=== PATIENT | female | born 1980 | race American Indian/Alaskan Native ===

== ENCOUNTER 2018-09-11 14:30 | Outpatient (CLI) | payer OTHER | END 2018-09-11 22:37 | disposition home or self-care (01) | LOC: NST 14:30 | DX: Z34.83 Encounter for supervision of other normal pregnancy, third trimester (principal) ==

== ENCOUNTER 2018-10-19 10:16 | Outpatient (CLI) | payer OTHER | END 2018-10-19 11:29 | disposition home or self-care (01) | LOC: NST 10:16 | DX: Z34.83 Encounter for supervision of other normal pregnancy, third trimester (principal) ==

== ENCOUNTER 2018-10-20 07:53 | Outpatient (CLI) | payer OTHER | END 2018-10-20 09:41 | disposition home or self-care (01) | LOC: NST 07:53 | DX: Z34.83 Encounter for supervision of other normal pregnancy, third trimester (principal) ==

== ENCOUNTER → 2018-10-21 | Outpatient (CLI) | payer OTHER ==
[~2018-10-21] MED LIST: PRENATAL TABLE1 EAC1 PO; SYNTHROID175 MCG PO
== END | disposition home or self-care (01) ==
LOC: NST 09:29
DX: Z34.83 Encounter for supervision of other normal pregnancy, third trimester (principal)

== ENCOUNTER 2018-10-22 09:45 | Inpatient (IN) | payer OTHER ==
[~2018-10-22] VITALS: Ht 157.5 cm; Wt 68.9 kg
[2018-10-22] MEDS ORDERED: SYNTHROID175 MCG PO (10:10)
[2018-10-22] MEDS ORDERED: PRENATAL TABLE1 EAC1 PO (10:10)
== END 2018-10-24 14:13 | disposition home or self-care (01) | DRG 768 ==
LOC: LDR 09:45 → OB/GYN 09:45 → LDR 10:39 → OB/GYN 17:22
PROVIDERS: ADMIT Obstetrics & Gynecology
PROC: 10E0XZZ Delivery of Products of Conception, External Approach (ICD-10-PCS; principal; 2018-10-22)
PROC: 0DQR0ZZ Repair Anal Sphincter, Open Approach (ICD-10-PCS; 2018-10-22)
PROC: 10D07Z6 Extraction of Products of Conception, Vacuum, Via Natural or Artificial Opening (ICD-10-PCS; 2018-10-22)
PROC: 0W8NXZZ Division of Female Perineum, External Approach (ICD-10-PCS; 2018-10-22)
PROC: 4A0HXFZ Measurement of Products of Conception, Cardiac Rhythm, External Approach (ICD-10-PCS; 2018-10-22)
DX: O70.20 Third degree perineal laceration during delivery, unspecified (principal); Z37.0 Single live birth; O60.14X0 Preterm labor third trimester with preterm delivery third trimester, not applicable or unspecified; Z3A.35 35 weeks gestation of pregnancy